=== PATIENT | male | born 1965 | race Caucasian/White ===

== ENCOUNTER → 2021-04-13 07:27 | Outpatient (CLI) | payer OTHER, SELFPAY ==
--- NOTE | 2021-04-13 07:31 | DI.RAD.S_ITS ---
PROCEDURE: XR LUMBAR SPINE MIN 4V INDICATIONS: LBP and Right hip pain TECHNIQUE: 5 views of the lumbar spine acquired, including flexion and extension views. COMPARISON: [facility], XR LUMBAR SPINE 2 OR 3 VIEWS, 12/27/2018, 15:53. FINDINGS: Bones: 5 nonrib-bearing vertebrae are present. Trace multilevel retrolisthesis. Endplate osteophytes indicate very mild early multilevel disc degeneration. Mild facet joint arthropathy at the L4-L5 and L5-S1 levels. No vertebral body compression fractures. No suspicious bony lesions. Soft tissues: Overlying bowel gas pattern is normal. No suspicious soft tissue calcifications. IMPRESSION: Mild multilevel spondylosis. Dictated by: Dave Worthy [facility] Interpreted: Abhijit Sherwood MD on 04/13/2021 at 10:22 Transcribed by: BELLA on 04/13/2021 at 10:23 Approved by: Abhijit Sherwood M.D. on 04/13/2021 at 15:41
== END ==
PROVIDERS: PCP Internal Medicine; Referring Provider Physical Medicine & Rehabilitation; Visit Provider Physical Medicine & Rehabilitation
DX: M47.26 Other spondylosis with radiculopathy, lumbar region (principal); M47.27 Other spondylosis with radiculopathy, lumbosacral region; M54.5 Low back pain; M16.11 Unilateral primary osteoarthritis, right hip
CPT/HCPCS: 72110

== ENCOUNTER → 2022-11-12 14:35 | Outpatient (CLI) | payer OTHER, SELFPAY ==
--- NOTE | 2022-11-12 | DI.RAD.S_ITS ---
PROCEDURE: XR CERVICAL SPINE 4V OR 5V INDICATIONS: Cervicalgia TECHNIQUE: 5 views of the cervical spine acquired. COMPARISON: None. FINDINGS: Bones: No fractures or dislocations to the C7 level. Oblique images demonstrate no bony foraminal stenoses. Anterior fusion C5-C6. Multilevel disc space narrowing and endplate osteophyte formation. Facet hypertrophy throughout the mid and lower cervical spine. Soft tissues: No prevertebral soft tissue swelling. IMPRESSION: 1. Multilevel degenerative disc and facet disease. 2. Postsurgical sequelae. 3. No acute fracture. No osseous lesion. If symptoms and/or clinical suspicion for pathology persist, further assessment with repeat, or advanced imaging (e.g., CT, MRI, or bone scan) may be helpful for further assessment. Dictated by: Maureen Tillman M.D. on 11/12/2022 at 16:31 Transcribed by: [email or web address] on 11/12/2022 at 16:32 Approved by: Maureen Tillman M.D. on 11/12/2022 at 16:55
== END ==
PROVIDERS: PCP Internal Medicine; Referring Provider Internal Medicine; Visit Provider Internal Medicine
DX: M50.30 Other cervical disc degeneration, unspecified cervical region (principal); Z98.1 Arthrodesis status
CPT/HCPCS: 72050

== ENCOUNTER → 2023-03-21 13:14 | Outpatient (CLI) | payer OTHER, SELFPAY ==
--- NOTE | 2023-03-21 13:16 | DI.MRI.S_ITS ---
PROCEDURE: MR CERVICAL SPINE WO CON INDICATIONS: Left axial neck pain history of cervical ACDF C5-6 TECHNIQUE: Noncontrast sagittal T1 spin echo and T2 fast spin echo, sagittal STIR, foraminal oblique sagittal T2 fast spin echo, and axial gradient echo or T2 fast spin echo through the cervical spine. COMPARISON: Outside Facility, RG, MRI C-SPINE W/O CONTRAST, 02/19/2015, 17:10. [facility], CR, XR CERVICAL SPINE 4V OR 5V, 11/12/2022, 14:38. FINDINGS: Image quality: Excellent. Alignment and Curvature: Anterior fusion is present at C5-6. There is trace retrolisthesis of C3 on C4, C6 on C7 and trace anterolisthesis C4 on C5. Bone Marrow: Marrow demonstrates normal overall signal. Spinal Cord: Visualized spinal cord has normal size and signal. No cerebellar tonsillar herniation. Paraspinous Soft Tissues: No paravertebral masses. Prevertebral soft tissues are normal in thickness. Discs: Mild desiccation is present within the cervical spine. C2-C3: No disc bulge, spinal stenosis or foraminal narrowing. No interval change. C3-C4: Mild disc bulge including a superimposed left posterior paracentral component causing indentation of the anterior thecal sac and cord, progressive compared to prior exam. Moderate bilateral foraminal narrowing, progressive. C4-C5: Mild disc bulge with mild spinal stenosis, progressive. Moderate bilateral foraminal narrowing, progressive. Uncovertebral hypertrophy is present. C5-C6: Postsurgical changes are present. Minimal disc bulge without spinal stenosis or foraminal narrowing. No interval change. C6-C7: Mild disc bulge without spinal stenosis. Mild left foraminal narrowing slightly progressive. C7-T1: No disc bulge, spinal stenosis or foraminal narrowing. IMPRESSION: Stable anterior fusion at C5-6. Multilevel disc bulges, spinal stenosis and foraminal narrowing with multiple levels demonstrating interval progression since 2014 as above. Foraminal narrowing is most prominent at C4-5 secondary to uncovertebral arthropathy. Dictated by: Ivy Obrien M.D. on 03/21/2023 at 17:24 Approved by: Ivy Obrien M.D. on 03/21/2023 at 17:28
== END ==
PROVIDERS: PCP Internal Medicine; Referring Provider Physical Medicine & Rehabilitation; Visit Provider Physical Medicine & Rehabilitation
DX: M47.812 Spondylosis without myelopathy or radiculopathy, cervical region (principal); M48.02 Spinal stenosis, cervical region; M50.221 Other cervical disc displacement at C4-C5 level; M50.31 Other cervical disc degeneration, high cervical region; Z98.1 Arthrodesis status
CPT/HCPCS: 72141

== ENCOUNTER → 2025-08-13 09:11 | Outpatient (CLI) | payer BC, SELFPAY ==
[2025-08-13 10:56] LABS: Add Manual Diff / Slide Review NO; Hematocrit 43.9 % (41-53); Hemoglobin 15.1 g/dL (13.5-17.5); Lymphocytes Absolute Auto 1400 /uL (1100-4500); Mean Corpuscular HGB Conc 34.4 % (30-36); Mean Corpuscular Hemoglobin 31.2 PG (26-34); Mean Corpuscular Volume 90.6 fL (80-100); Platelet Count 249 X10^3/uL (150-400)
[2025-08-13 11:28] LABS: Hemoglobin A1C% w Est Avg Glu 5.9 % (4.0-6.0)
[2025-08-13 11:29] LABS: Alanine Aminotransferase 27 IU/L (<50); Albumin 4.9 g/dL (3.5-5.0); Albumin Globulin Ratio 1.7 (1.0-2.8); Alkaline Phosphatase 57 U/L (38-126); Blood Urea Nitrogen 20 mg/dL (9-20); Calcium 9.8 mg/dL (8.4-10.2); Carbon Dioxide 27 mmol/L (22-32); Chloride 104 mmol/L (98-107); Cholesterol 259 mg/dL (140-199); Estimated Glomerular Filt Rate > 60 mL/min (>60); Globulin 2.9 g/dL (1.7-4.1); Glucose 116 mg/dL (70-99); HDL Cholesterol 50 mg/dL (40-60); HEMOLYSIS < 15 (0-50); Potassium 5.2 mmol/L (3.4-5.1); Sodium 140 mmol/L (137-145); Total Protein 7.8 g/dL (6.3-8.2); Triglycerides 152 mg/dL (35-150); VLDL Cholesterol Calculated 30 mg/dL (2-30)
[2025-08-13 12:01] LABS: Prostate Specific Antigen 2.91 ng/mL (0.10-4.00)
== END ==
PROVIDERS: PCP Internal Medicine; Referring Provider Internal Medicine; Visit Provider Internal Medicine
DX: Z00.00 Encounter for general adult medical examination without abnormal findings (principal); E78.2 Mixed hyperlipidemia; I10 Essential (primary) hypertension
CPT/HCPCS: 36415; 80053; 80061; 83036; 84153; 85025